=== PATIENT | female | born 1975 | race Caucasian/White ===

== ENCOUNTER 2021-09-11 19:13 | Emergency (ER) | payer BC ==
[~2021-09-11] VITALS: Ht 162.6 cm; Wt 106.6 kg
[2021-09-11] MEDS ORDERED: CYCLOBENZAPRINE 10 MG TABLET PO ONE (20:00)
[2021-09-11] MEDS ORDERED: KETOROLAC TROMETHAMINE INJ 60 MG/2 ML VIAL IM ONE (20:00)
[2021-09-11] MEDS ORDERED: KETOROLAC TROMETHAMINE INJ 30 MG/ML VIAL ONE (20:12)
[2021-09-11] MEDS ORDERED: CYCLOBENZAPRINE 10 MG TABLET ONE (20:12)
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
[2021-09-11] MEDS ORDERED: IBUP-1955 PO (20:51)
[2021-09-11] MEDS ORDERED: CYCL10TA9 PO (20:51)
--- NOTE | 2021-09-11 21:00 | NUR ---
Patient discharged to home in stable condition. Written and verbal after care instructions given. Patient verbalizes understanding of instruction.
[2021-09-11 21:43] VITALS: BP 135/78
== END 2021-09-11 21:00 | disposition home or self-care (01) ==
LOC: ER 19:22
DX: S16.1XXA Strain of muscle, fascia and tendon at neck level, initial encounter (principal); M54.6 Pain in thoracic spine; I10 Essential (primary) hypertension; Z60.2 Problems related to living alone; Z79.899 Other long term (current) drug therapy; V49.9XXA Car occupant (driver) (passenger) injured in unspecified traffic accident, initial encounter; Y93.89 Activity, other specified; Y92.89 Other specified places as the place of occurrence of the external cause; Y99.8 Other external cause status
CPT/HCPCS: 99284; 96372; 72040; 72070; J1885